=== PATIENT | female | born 1990 | race African-American/Black ===

== ENCOUNTER 2018-05-18 09:11 | Emergency (ER) | payer OTHER ==
[~2018-05-18] VITALS: Ht 160 cm; Wt 88.0 kg
[2018-05-18 09:13] VITALS: BP 131/67
== END 2018-05-18 10:00 | disposition home or self-care (01) ==
LOC: ER 09:11
DX: T16.1XXA Foreign body in right ear, initial encounter (principal); F41.9 Anxiety disorder, unspecified; F32.9 Major depressive disorder, single episode, unspecified; X58.XXXA Exposure to other specified factors, initial encounter; Y93.89 Activity, other specified; Y92.89 Other specified places as the place of occurrence of the external cause; Y99.8 Other external cause status